=== PATIENT | male | born 1965 | race Caucasian/White ===

== ENCOUNTER 2016-10-04 05:28 | Day surgery (SDC) | payer OTHER ==
[~2016-10-04] VITALS: Ht 182.9 cm; Wt 89.4 kg
--- NOTE | ~2016-10-04 | OP ---
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 PROCEDURES: 1. Esophagoscopy with biopsy in the areas of Culver's. 2. Culver's ablation with the argon plasma glass frame fitter. SURGEON: Florin Smith MD SUPERVISOR FUNCTIONAL TESTING: None. BLOOD LOSS: Minimal. ANESTHESIA: General. COMPLICATIONS: None. The risks, possible complications and alternatives to procedure were explained to the patient. He elects to proceed. I told him that he will need to be on a Culver's surveillance regimen for the rest of his life. I also told him that he may need to undergo Culver's ablation again sometime in the future as Culver's can regrow at the same site or at the sites. ENDOSCOPIC COURSE: The patient was conveyed to the operating room electively on 10/04/2016. General anesthesia was induced by anesthesia staff. A bite block was inserted. A gastroscope was inserted into the mouth. It was advanced easily into the hypopharynx. The esophagus was easily intubated. I measured the length of the Culver's. From the lips, it was from 20 cm to 40 cm. Four quadrant biopsies were obtained up the entire length of the Culver's every 2 cm. I noted no definite nodularity. No fungating areas. There were some ulcerated areas that were biopsied. I then advanced the argon plasma glass frame fitter down through the endoscope. The argon plasma glass frame fitter is a radiofrequency type of ablation of benign processes. Utilizing the esophageal setting in the forced mode, I performed ablation by pulling up from 40 cm to 20 cm. I did this generally at the 12 o'clock and then 1 o'clock and then 2 o'clock, etc., on round and back to 11 o'clock on the face of a clock. I did this while withdrawing the argon plasma glass frame fitter. The Culver's appeared to be thoroughly ablated. The endoscope was then withdrawn under direct vision. The patient was extubated and conveyed to the post-anesthesia care unit where he was in stable condition. I will see him out of the long term. There is no need for him to follow up with me in the office unless he develops complication related to this operative procedure. TRANSINT:[id number] Voice Confirmation ID: [id number] DOCUMENT ID: [id number] OPERATIVE REPORT [id number] PILI BLACKBURN ROBERT MD CC: FLORIN CHRISTIANSON MD, MICHELLE DAY STIEVE, JEFFREY MD and [facility],[id number] DICTATION DATE: 10/04/161732 HEEL VARNISHER: 10/04/162202 [facility] 10/04/16 [facility] [address] [facility] [place] [address]
[2016-10-04 09:42] VITALS: BP 124/75; Ht 182.9 cm; Wt 89.4 kg
--- NOTE | 2016-10-04 20:11 | NUR ---
1740 BACK FROM EGD WITH ARGON. RESP EVEN AND NONLABORED, HOB ELEVATED. DENIES PAIN OR NAUSEA.
--- NOTE | 2016-10-04 20:17 | NUR ---
1810 TOLERATING FULL LIQUIDS.
--- NOTE | 2016-10-04 20:20 | NUR ---
1840 IV DCD CATHETER INTACT. DISCHARGE INSTRUCTIONS GIVEN 1844 TO SENIOR CARE VIA W/C WITH GUARD.
--- NOTE | 2016-10-04 20:20 | NUR ---
1835 UP AND VOIDED.
== END 2016-10-04 18:40 | disposition other institution (70) ==
LOC: D.OPS 05:28
DX: K22.70 Barrett's esophagus without dysplasia (principal); Z01.812 Encounter for preprocedural laboratory examination